=== PATIENT | male | born 1960 | race Caucasian/White ===

== ENCOUNTER 2018-02-01 10:22 | Outpatient (REF) | payer OTHER, SELFPAY ==
[2018-02-01 13:01] LABS: Anion Gap 9.8 mmol/L (3-11); BUN 14 mg/dL (7-18); CO2 28.2 mmol/L (21.0-32.0); CREATININE 1.11 mg/dL (0.70-1.30); Calcium 9.8 mg/dL (8.5-10.1); Chloride 100 mmol/L (98-107); Glucose 103 mg/dL (70-100); Potassium 4.3 mmol/L (3.5-5.1); Sodium 138 mmol/L (136-145); TSH 3.26 uIU/mL (0.358-3.74)
[2018-02-04 10:59] LABS: Hepatitis C Ab w Rflx HCV PCR Negative (NEGAT)
== END 2018-02-01 10:42 ==
LOC: NCHCN 10:22
PROVIDERS: PCP Internal Medicine; Visit Provider Internal Medicine
DX: E03.9 Hypothyroidism, unspecified (principal); I10 Essential (primary) hypertension; Z00.00 Encounter for general adult medical examination without abnormal findings; Z11.59 Encounter for screening for other viral diseases
CPT/HCPCS: 80048; 86803; 84443

== ENCOUNTER 2018-07-23 09:08 | Outpatient (REF) | payer OTHER, SELFPAY ==
[2018-07-24 10:01] LABS: PSA, Screening 0.9 ng/ml (0-3.5)
== END 2018-07-23 09:28 ==
LOC: NCHCN 09:08
PROVIDERS: PCP Internal Medicine; Visit Provider Internal Medicine
DX: N39.41 Urge incontinence (principal); N40.0 Benign prostatic hyperplasia without lower urinary tract symptoms; Z12.5 Encounter for screening for malignant neoplasm of prostate
CPT/HCPCS: 84153

== ENCOUNTER 2019-03-31 13:10 | Outpatient (CLI) | payer OTHER, SELFPAY ==
--- NOTE | 2019-03-31 12:20 | DI.RAD_ITS ---
EXAM: XR ELBOW RT COMPLETE INDICATION: persistent pain and swelling RUE post fall 2 weeks ago, M79.601. COMPARISON: No exams were available for comparison TECHNIQUE: 2D digital imaging was performed. FINDINGS: There is a subacute appearing fracture seen extending transversely through the neck of the proximal r adius. There is minimal impaction. There is no visible extension to the articular surface. The dis donte humerus and proximal ulna appear intact. A joint effusion is seen. IMPRESSION: Subacute mildly impacted fracture of the radial neck.
--- NOTE | 2019-03-31 12:22 | DI.RAD_ITS ---
EXAM: XR FOREARM RT INDICATION: persistent pain and swelling RUE post fall 2 weeks ago, M79.601. COMPARISON: No exams were available for comparison TECHNIQUE: 2D digital imaging was performed. FINDINGS: There is a subacute appearing nondisplaced fracture through the neck of the proximal radius. There i s minimal impaction. There is no visible extension to the articular surface. The distal humerus and ulna appear intact. There are degenerative changes in the carpal region. IMPRESSION: Mildly impacted fracture of the radial neck.
== END 2019-03-31 13:30 ==
PROVIDERS: PCP Internal Medicine; Visit Provider Nurse Practitioner Family
DX: M79.621 Pain in right upper arm (principal); M25.521 Pain in right elbow; M25.421 Effusion, right elbow; S52.131A Displaced fracture of neck of right radius, initial encounter for closed fracture
CPT/HCPCS: 73080; 73090

== ENCOUNTER 2019-04-16 01:34 | Outpatient (CLI) | payer OTHER, SELFPAY ==
--- NOTE | 2019-04-16 09:58 | DI.RAD_ITS ---
EXAM: XR FOREARM RT INDICATION: follow up fracture S52.91XA FRACTURE RT FOREARM. COMPARISON: XR FOREARM RT from 03/31/2019 TECHNIQUE: 2D digital imaging was performed. FINDINGS: There has been no change in alignment of the fracture of the radial neck. No new fracture or disloca tion is identified.
== END 2019-04-16 01:54 ==
PROVIDERS: PCP Internal Medicine; Visit Provider Nurse Practitioner Family
DX: S52.131D Displaced fracture of neck of right radius, subsequent encounter for closed fracture with routine healing (principal)
CPT/HCPCS: 73090

== ENCOUNTER 2019-08-01 08:32 | Outpatient (REF) | payer OTHER, SELFPAY ==
[2019-08-01 21:16] LABS: Anion Gap 8.2 mmol/L (3-11); BUN 16 mg/dL (7-18); CO2 28.8 mmol/L (21.0-32.0); CREATININE 1.18 mg/dL (0.70-1.30); Calcium 9.3 mg/dL (8.5-10.1); Chloride 100 mmol/L (98-107); FREE T4 1.27 ng/dL (0.76-1.46); Glucose 90 mg/dL (74-106); Potassium 4.6 mmol/L (3.5-5.1); Sodium 137 mmol/L (136-145)
== END 2019-08-01 08:52 ==
LOC: NCHCN 08:32
PROVIDERS: PCP Internal Medicine; Visit Provider Internal Medicine
DX: I10 Essential (primary) hypertension (principal); E03.9 Hypothyroidism, unspecified
CPT/HCPCS: 80048; 84439; 84443

== ENCOUNTER 2020-02-05 22:00 | Outpatient (REF) | payer OTHER, SELFPAY ==
[2020-02-05 21:33] LABS: Bilirubin Negative (Negative); Blood Negative (Negative); Clarity Clear (Clear); Glucose Negative (Negative); Ketones Negative (Negative); Leukocyte Esterase Negative (Negative); Nitrite Negative (Negative); Specific Gravity 1.015 (1.005-1.025); Urobilinogen 0.2 EU/dL (Up TO 0.2)
== END 2020-02-05 22:20 ==
LOC: NCHCN 22:00
PROVIDERS: PCP Internal Medicine; Visit Provider Family Medicine
DX: N39.41 Urge incontinence (principal)
CPT/HCPCS: 81003

== ENCOUNTER 2020-11-23 12:01 | Outpatient (REF) | payer OTHER, SELFPAY ==
[2020-11-23 15:01] LABS: Anion Gap 11.7 mmol/L (3-11); BUN 15 mg/dL (7-18); CO2 26.3 mmol/L (21.0-32.0); CREATININE 1.1 mg/dL (0.70-1.30); Calcium 9.3 mg/dL (8.5-10.1); Calculated LDL 140 mg/dL (<100); Chloride 102 mmol/L (98-107); Cholesterol 255 mg/dL (<200); Glucose 91 mg/dL (74-106); HDL Cholesterol 70 mg/dL (40-60); Potassium 3.8 mmol/L (3.5-5.1); Sodium 140 mmol/L (136-145); TSH 2.96 uIU/mL (0.36-3.74); Triglyceride 226 mg/dL (<150)
== END 2020-11-23 12:02 | disposition home or self-care (01) ==
LOC: NCHCN 12:01
PROVIDERS: PCP Internal Medicine; Visit Provider Internal Medicine
DX: I10 Essential (primary) hypertension (principal); E78.5 Hyperlipidemia, unspecified; E03.9 Hypothyroidism, unspecified
CPT/HCPCS: 80048; 80061; 84443

== ENCOUNTER 2021-01-12 12:28 | Outpatient (REF) | payer OTHER, SELFPAY | END 2021-01-12 12:29 | disposition home or self-care (01) | LOC: NCHCN 12:28 | PROVIDERS: PCP Internal Medicine; Visit Provider Family Medicine | DX: R35.0 Frequency of micturition (principal) | CPT/HCPCS: 87086 ==

== ENCOUNTER 2021-12-15 16:31 | Outpatient (REF) | payer OTHER, SELFPAY ==
[2021-12-15 16:10] LABS: Abs Immature Grans 0.01 10^3/uL (0.0-0.06); Absolute Basophil Count 0.02 10^3/uL (0.0-0.2); Absolute Eosinophil Count 0.09 10^3/uL (0.0-0.7); Absolute Lymphocyte Count 1.72 10^3/uL (1.2-3.4); Absolute Monocyte Count 0.39 10^3/uL (0.1-0.8); Absolute Neutrophil Count 4.77 10^3/uL (1.2-6.7); Basophils % 0.3; Eosinophils % 1.3; HCT 44.6 % (40.0-50.0); HGB 15.8 g/dL (13.5-17.5); Immature Grans % 0.1; Lymphocytes % 24.6; MCH 31.1 pg (27.0-33.0); MCHC 35.4 % (32.0-36.0); MCV 88 fL (80-95); Monocytes % 5.6; Neutrophils % 68.1; Platelet Count 334 10^3/uL (130-400); RBC 5.08 10^6/uL (4.36-5.78); RDW 11.9 % (11.8-14.1); RDW-SD 38.4 fL
[2021-12-15 16:41] LABS: ALT 31 U/L (16-63); AST 18 U/L (15-37); Albumin 4.1 g/dL (3.4-5.0); Alkaline Phosphatase 95 U/L (46-116); Anion Gap 8.9 mmol/L (3-11); BUN 19 mg/dL (7-18); Bilirubin, Total 0.8 mg/dL (0.2-1.0); CO2 28.1 mmol/L (21.0-32.0); CREATININE 1.2 mg/dL (0.70-1.30); Calcium 9.8 mg/dL (8.5-10.1); Chloride 100 mmol/L (98-107); Estimated GFR 69.23 (mL/min/1.73m2); Glucose 107 mg/dL (74-106); Sodium 137 mmol/L (136-145); TSH 2.39 uIU/mL (0.36-3.74); Total Protein 7.9 g/dL (6.4-8.2)
[2021-12-19 14:45] LABS: Helicobacter pylori Ag, Feces Negative (Negative)
== END 2021-12-15 16:32 | disposition home or self-care (01) ==
LOC: NCHCN 16:31
PROVIDERS: PCP Internal Medicine; Visit Provider Internal Medicine
DX: I10 Essential (primary) hypertension (principal); R63.4 Abnormal weight loss; F51.05 Insomnia due to other mental disorder; K30 Functional dyspepsia; E03.9 Hypothyroidism, unspecified; R68.81 Early satiety
CPT/HCPCS: 80053; 87338; 84443; 85025

== ENCOUNTER 2022-05-29 18:16 | Outpatient (REF) | payer OTHER, SELFPAY ==
[2022-05-30 00:33] LABS: PSA, Screening 1.3 ng/mL (<=4.5)
== END 2022-05-29 18:17 | disposition home or self-care (01) ==
LOC: NCHCN 18:16
PROVIDERS: PCP Internal Medicine; Visit Provider Internal Medicine
DX: N40.1 Benign prostatic hyperplasia with lower urinary tract symptoms (principal); R39.15 Urgency of urination; Z12.5 Encounter for screening for malignant neoplasm of prostate
CPT/HCPCS: 84153

== ENCOUNTER 2022-12-21 17:55 | Outpatient (REF) | payer OTHER, SELFPAY ==
[2022-12-21 16:42] LABS: TSH 1.21 uIU/mL (0.36-3.74)
== END 2022-12-21 17:56 | disposition home or self-care (01) ==
LOC: NCHCN 17:55
PROVIDERS: PCP Internal Medicine; Visit Provider Internal Medicine
DX: E03.9 Hypothyroidism, unspecified (principal); I10 Essential (primary) hypertension
CPT/HCPCS: 84443

== ENCOUNTER 2023-06-14 15:16 | Outpatient (REF) | payer OTHER, SELFPAY ==
[2023-06-14 16:35] LABS: ALT 37 U/L (16-63); AST 15 U/L (15-37); Albumin 3.9 g/dL (3.4-5.0); Alkaline Phosphatase 107 U/L (46-116); Anion Gap 11.5 mmol/L (3-11); BUN 20 mg/dL (7-18); Bilirubin, Total 0.6 mg/dL (0.2-1.0); CO2 26.5 mmol/L (21.0-32.0); CREATININE 1.1 mg/dL (0.70-1.30); Calculated LDL 136 mg/dL (<100); Chloride 104 mmol/L (98-107); Cholesterol 232 mg/dL (<200); Estimated GFR 76.37 (mL/min/1.73m2); Glucose 99 mg/dL (74-106); HDL Cholesterol 71 mg/dL (40-60); Potassium 4.1 mmol/L (3.5-5.1); Sodium 142 mmol/L (136-145); TSH (W/Ref FT4) 0.96 uIU/mL (0.36-3.74); Total Protein 7.6 g/dL (6.4-8.2); Triglyceride 126 mg/dL (<150)
[2023-06-14 16:50] LABS: Calcium 9.6 mg/dL (8.5-10.1)
[2023-06-14 17:03] LABS: Hemoglobin A1C 5.5 % (<5.7)
[2023-06-14 22:35] LABS: PSA, Diagnostic 1.3 ng/mL (<=4.5)
== END 2023-06-14 15:17 | disposition home or self-care (01) ==
LOC: NCHCN 15:16
PROVIDERS: PCP Internal Medicine; Visit Provider Nurse Practitioner Family
DX: I10 Essential (primary) hypertension (principal); E03.9 Hypothyroidism, unspecified; E78.5 Hyperlipidemia, unspecified; E66.3 Overweight
CPT/HCPCS: 80053; 80061; 83036; 84153; 84443

== ENCOUNTER 2023-12-20 15:35 | Outpatient (REF) | payer OTHER, SELFPAY ==
[2023-12-20 15:33] LABS: HGB 15.9 g/dL (13.5-17.5); MCH 31.3 pg (27.0-33.0); MCHC 34.6 % (32.0-36.0); MCV 91 fL (80-95); MPV 9.2 fL (8.0-11.0); Platelet Count 281 10^3/uL (130-400); RBC 5.08 10^6/uL (4.36-5.78); RDW 11.7 % (11.8-14.1); RDW-SD 38.8 fL; WBC 6.21 10^3/uL (4.4-10.8)
[2023-12-20 15:47] LABS: Iron 97 ug/dL (65-175); Total Iron Binding Capacity 385 ug/dL (250-450); Transferrin Sat 25 % (20-55)
[2023-12-20 16:13] LABS: ALT 33 U/L (16-63); AST 16 U/L (15-37); Alkaline Phosphatase 95 U/L (46-116); Anion Gap 9.7 mmol/L (3-11); BUN 18 mg/dL (7-18); Bilirubin, Total 0.83 mg/dL (0.2-1.0); CO2 26.3 mmol/L (21.0-32.0); CREATININE 1.1 mg/dL (0.70-1.30); Calcium 9.6 mg/dL (8.5-10.1); Chloride 101 mmol/L (98-107); Ferritin 334 ng/mL (26-388); Glucose 100 mg/dL (74-106); Sodium 137 mmol/L (136-145); Total Protein 7.6 g/dL (6.4-8.2)
[2023-12-20 16:32] LABS: TSH (W/Ref FT4) 0.82 uIU/mL (0.36-3.74)
== END 2023-12-20 15:36 | disposition home or self-care (01) ==
LOC: NCHCN 15:35
PROVIDERS: PCP Nurse Practitioner Family; Visit Provider Nurse Practitioner Family
DX: G25.81 Restless legs syndrome (principal); R53.83 Other fatigue
CPT/HCPCS: 80053; 85027; 82728; 83540; 83550; 84443

== ENCOUNTER 2024-06-20 17:23 | Outpatient (REF) | payer OTHER, SELFPAY ==
[2024-06-20 17:10] LABS: ALT 50 U/L (16-63); AST 24 U/L (15-37); Albumin 3.9 g/dL (3.4-5.0); Alkaline Phosphatase 88 U/L (46-116); Anion Gap 9.9 mmol/L (3-11); BUN 20 mg/dL (7-18); CO2 27.1 mmol/L (21.0-32.0); CREATININE 1.1 mg/dL (0.70-1.30); Calcium 9.6 mg/dL (8.5-10.1); Calculated LDL 43 mg/dL (<100); Chloride 103 mmol/L (98-107); Cholesterol 142 mg/dL (<200); Glucose 103 mg/dL (74-106); HDL Cholesterol 84 mg/dL (>or=40); Potassium 4.2 mmol/L (3.5-5.1); Sodium 140 mmol/L (136-145); Total Protein 7.3 g/dL (6.4-8.2); Triglyceride 75 mg/dL (<150)
== END 2024-06-20 17:24 | disposition home or self-care (01) ==
LOC: NCHCN 17:23
PROVIDERS: PCP Nurse Practitioner Family; Visit Provider Nurse Practitioner Family
DX: I10 Essential (primary) hypertension (principal); E78.5 Hyperlipidemia, unspecified
CPT/HCPCS: 80053; 80061

== ENCOUNTER 2024-12-03 16:32 | Outpatient (REF) | payer OTHER, SELFPAY ==
[2024-12-03 18:49] LABS: Abs Immature Grans 0.02 10^3/uL (0.0-0.06); HCT 42.6 % (40.0-50.0); HGB 14.7 g/dL (13.5-17.5); Immature Grans % 0.3 %; MCH 31.3 pg (27.0-33.0); MCHC 34.5 % (32.0-36.0); MCV 91 fL (80-95); MPV 9.5 fL (8.0-11.0); Platelet Count 286 10^3/uL (130-400); RBC 4.69 10^6/uL (4.36-5.78); RDW 12.1 % (11.8-14.1); RDW-SD 40.2 fL; WBC 6.96 10^3/uL (4.4-10.8)
[2024-12-03 19:15] LABS: ALT 75 U/L (16-63); AST 21 U/L (15-37); Albumin 3.8 g/dL (3.4-5.0); Alkaline Phosphatase 90 U/L (46-116); Anion Gap 8.1 mmol/L (3-11); BUN 18 mg/dL (7-18); Bilirubin, Total 0.7 mg/dL (0.2-1.0); CO2 27.9 mmol/L (21.0-32.0); Calcium 9.6 mg/dL (8.5-10.1); Chloride 102 mmol/L (98-107); Estimated GFR 75.43 (mL/min/1.73m2); Glucose 100 mg/dL (74-106); Potassium 4.2 mmol/L (3.5-5.1); Sodium 138 mmol/L (136-145); TSH (W/Ref FT4) 1.04 uIU/mL (0.36-3.74); Total Protein 7.3 g/dL (6.4-8.2)
== END 2024-12-03 16:33 | disposition home or self-care (01) ==
LOC: NCHCN 16:32
PROVIDERS: PCP Nurse Practitioner Family; Visit Provider Nurse Practitioner Family
DX: E03.9 Hypothyroidism, unspecified (principal); I10 Essential (primary) hypertension; R53.83 Other fatigue
CPT/HCPCS: 80053; 84443; 85025